=== PATIENT | female | born 1960 | race Hispanic/Latino ===

== ENCOUNTER 2022-10-12 16:08 | Emergency (ER) | payer SELFPAY ==
[2022-10-12 16:10] VITALS: BP 123/79; PULSE 72; RESP 16; TEMP 35.8; O2SAT 99; BMI 20.8
--- NOTE | 2022-10-12 17:57 | EX.ED.DYSGE1 ---
HPI History of Present Illness Chief Complaint: Edema Narrative Narrative: 62-year-old female presenting with intermittent lower extremity edema. She has her family here as she only speaks Ivorian and her son and her can interpret. She has had some edema in her lower legs for some time now. 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 When she sits down her legs improved. She denies any sort of chest pain or shortness of breath. No fevers or chills. She moved from [place] just over a year ago she reports. She was living in [place] and is now here. She has not had blood work since she was lived in [place]. She did not have a primary care doctor in [place]. She states she has no medical problems and takes no medications. She also complains of some lower back pain on the right which is new. She does remember injuring herself. No loss of bladder or bowel control. No saddle anesthesia or paresthesia. She does report of some pain rating down the left gluteal region. She is able to stand. Patient also reports that she is recently had some constipation but she is able to have a bowel movement every day. She does not have any abdominal pain. She has not taken anything [id number] for constipation. [facility] Medical History Herniated disc Home Medications lidocaine 5 % topical patch (Lidoderm) 1 patch topical DAILY PRN pain #15 ea 10/12/22 [Rx Last Taken Unknown] naproxen 500 mg tablet (Naprosyn) 500 mg PO BID PRN pain #30 tabs 10/12/22 [Rx Last Taken Unknown] Allergy/AdvReac Type Severity Reaction Status Date / Time No Known Allergies Allergy Verified 10/12/22 18:47 Social History Smoking Status: Never smoker ROS ROS ED Constitutional Constitutional ED: Denies chills or fever(s) Eyes Eyes: Denies change in vision or diplopia ENT ENT ED: Denies rhinorrhea or sore throat Cardiovascular Cardiovascular: Denies chest pain or palpitations Respiratory/Chest Respiratory/Chest: Denies cough, dyspnea or dyspnea on exertion Gastrointestinal Gastrointestinal: Reports constipation; Denies abdominal pain, nausea or vomiting Genitourinary Genitourinary ED: Denies dysuria or hematuria Musculoskeletal Musculoskeletal: Reports back pain; Denies arthralgias Integumentary Denies abscess or Abrasions Neurologic Neurologic: Denies headache(s) or paresthesias Psychiatric Psychiatric: Denies anxiety or depression EXAM Physical Exam Const Vital Signs: 10/12/22 16:10 10/12/22 16:57 Temperature 96.5 F L Temperature Source Temporal Pulse Rate 72 Respiratory Rate 16 Respiratory Effort Normal Non-Labored Respiratory Pattern Normal Blood Pressure 123/79 H Blood Pressure Mean 93 Pulse Ox 99 Oxygen Delivery Method Room Air Positive well nourished General Appearance ED: NAD; Negative for pallor HEENT Reports moist mucous membranes Eyes PERRL and EOMs intact bilaterally Resp normal respiratory effort and clear to auscultation bilaterally Auscultation: Negative for rales, rhonchi or wheezes Cardio regular rate and regular rhythm GI normal to inspection, nondistended, normoactive bowel sounds Back/Spine no CVA tenderness Back/Spine Narrative: Lumbar paraspinal tenderness and around L4-L5 on the right. No midline deformity or step-off. No bruising. Neuro oriented x3 and CN's II-XII intact bilaterally Sensorium / Orientation: alert Motor Exam: strength 5/5 throughout Psych mental status grossly normal Skin no rashes or lesions noted General Skin Exam: Negative for jaundice or pallor MDM MDM MDM Narrative Medical decision making narrative: Patient presented with back pain which appears to be musculoskeletal in nature. I will obtain an x-ray of the lumbar spine to rule out compression fracture. She is treated with lidocaine patch and Toradol. Patient does not have any flank pain or CVA tenderness however we will order urinalysis to rule out occult blood or UTI/pyelonephritis. I will obtain a CBC and a BMP to assess white blood cell count, hemoglobin, platelets, renal function, electrolytes. The patient has not had blood work drawn in some time. On exam I do not see any edema of the feet or the lower legs.I discussed this with the family and they state when she sits down and rest that the swelling goes away. I do not believe this is due to CHF that is likely due to standing all day. She has no evidence of DVT. Since he is not complaining of any chest pain or shortness of breath I do not think she needs a cardiac work-up. CBC and BMP unremarkable with exception of a glucose of 442. No anion gap. Urinalysis positive for nitrites otherwise there is no infectious findings. There is no occult blood. I did obtain a x-ray of the lumbar spine which shows an age-indeterminate L3 compression fracture. Patient feeling better after giving Toradol. She is ambulatory and was able to walk to the bathroom. She does not have health insurance nor does she have follow-up so I gave her follow-up with Karly Ochoa. All questions were answered via the family interpreting at the bedside. All questions were answered. Return precautions discussed. Patient given scription for Naprosyn and Lidoderm patches. Impression: 1. L3 compression fracture 2. Lower extremity Lab Data Attestation: I reviewed the patient's lab results. Labs: Laboratory Results - last 24 hr 10/12/22 10/12/22 15:05 18:40 WBC 7.2 RBC 4.28 Hgb 12.7 Hct 37.1 MCV 86.7 MCH 29.7 MCHC 34.2 RDW Std Deviation 40.3 RDW Coeff of Adina 12.8 Plt Count 464 H MPV 8.8 Immature Gran % (Auto) 0.600 Neut % (Auto) 53.6 Lymph % (Auto) 36.0 [place] % (Auto) 9.0 Eos % (Auto) 0.4 Baso % (Auto) 0.4 Absolute Neuts (auto) 3.9 Absolute Lymphs (auto) 2.60 Nucleated RBC % 0 Sodium 133 L Potassium 3.8 Chloride 101 Carbon Dioxide 26.0 Anion Gap 6 BUN 12 Creatinine 0.48 L Estim Creat Clear Calc 91.16 Est GFR (MDRD) Af Amer 169 Est GFR (MDRD) Non-Af 140 BUN/Creatinine Ratio 25.0 H Glucose 442 H Calcium 8.6 Urine Color Yellow Urine Clarity Clear Urine pH 6.5 Ur Specific [place] 1.010 Urine Protein 15 H Urine Glucose (UA) 250 H Urine Ketones Negative Urine Occult Blood Negative Urine Nitrite Positive H Urine Bilirubin Negative Urine Urobilinogen Normal Ur Leukocyte Esterase Negative Urine RBC 0 SEEN Urine WBC 0 SEEN Ur Squamous Epith Cells 0-5 SEEN Urine Bacteria 0 SEEN Urine Mucus 0 SEEN Radiography Diagnostic Testing: Clinical Impression(s) from Imaging Studies Lumbar Spine X-Ray 10/12/22 19:30 IMPRESSION: 1. Moderate wedge compression fracture of L3 which may be acute, subacute, or chronic and clinical correlation MRI would be useful. 2. Diffuse degenerative disc disease. Electronically Signed: Grzegorz Porter MD at 20:10 EDT , Discharge Plan Triage Chief Complaint: Edema ED Provider: Roberto Baires Dx/Rx/DC Orders Instructions: ED Fracture, Vertebral Compression, ED Peripheral Edema, Bilateral Prescriptions: New naproxen [Naprosyn] 500 mg tablet 500 mg PO BID PRN (Reason: pain) Qty: 30 0RF lidocaine [Lidoderm] 5 % adhesive patch,medicated 1 patch topical DAILY PRN (Reason: pain) Qty: 15 0RF Rx Instructions: leave on most painful area for up to 12 hrs Primary Care Provider: Care Physician,No Primary Referrals: Karly Ochoa [facility] [Provider Group] Care Physician,No Primary [Primary Care Provider] - Disposition Disposition: Home, Self Care Discharge Date/Time: 10/12/22 20:59
[2022-10-12] MEDS: Ketorolac 15 MG/ML Vial IV (18:03)
[2022-10-12] MEDS: Lidocaine 5% Patch 1 PATCH TOPICAL (18:05)
[2022-10-12 18:14] LABS: Absolute Neutrophil Count 3.9 X10^3/uL (2.0-7.7); Basophil# 0.03 X10^3/uL; Basophil% 0.4 % (0-1); Eosinophil# 0.03 X10^3/uL; Eosinophils% 0.4 % (0-5); Hematocrit 37.1 % (37-47); Hemoglobin 12.7 g/dL (12.0-15.0); Mean Corp Hgb Conc 34.2 g/dL (32-36); Mean Corpuscular Hgb 29.7 pg (27.0-32.0); Mean Corpuscular Volume 86.7 fL (81-99); Mean Platelet Vol. 8.8 fl (6.2-12.0); Monocyte# 0.65 X10^3/uL; NRBC Flagged by Analyzer 0 % (0-5); Neutrophil # 3.87 X10^3/uL (2.7-7.7); Neutrophil % 53.6 % (47-70); Platelet Count 464 K/mm3 (150-450); RBC Distribution Width CV 12.8 % (11.6-14.6); RBC Distribution Width SD 40.3 fl (35.1-43.9); Red Blood Count 4.28 M/mm3 (4.2-5.4); White Blood Count 7.2 K/mm3 (4.4-11.0)
[2022-10-12 18:31] LABS: Anion Gap 6 (5-15); BUN 12 mg/dL (7-18); Calcium,Total 8.6 mg/dL (8.5-10.1); Chloride 101 mmol/L (98-107); Creatinine, Serum 0.48 mg/dL (0.55-1.02); EST Glomerular Filtration Rate 140 mL/min (>60); Est Glom Filt Rate - Afr Amer 169 mL/min (>60); Estimated Creatinine Clearance 91.16 ml/min; Glucose 442 mg/dL (74-106); Potassium 3.8 mmol/L (3.5-5.1); Sodium Level 133 mmol/L (136-145)
[2022-10-12 18:48] LABS: Bacteria 0 SEEN /hpf (None Seen); Mucous, Urine 0 SEEN /hpf (<or=2+); Red Blood Cells-Urine 0 SEEN /hpf (0-5); White Blood Cells 0 SEEN /hpf (0-5)
[2022-10-12 18:51] LABS: Color, Urine Yellow (Yellow); Glucose, Dipstick 250 mg/dl (Normal); Ketone-Dipstick Negative (Negative); Leukocyte Esterase-Dipstick Negative /ul (Negative); Nitrite-Dipstick Positive (Negative); Occult Blood-Urine Negative /ul (Negative); Protein-Dipstick 15 mg/dl (Negative); Urine Bilirubin Dipstick Negative (Negative); Urine Clarity Clear (Clear); Urine Urobilinogen Normal (Normal); Urine pH 6.5 (5.0 - 8.0)
[2022-10-12 18:58] LABS: Squamous Epithelial Cells - UA 0-5 SEEN /hpf (5-10)
--- NOTE | 2022-10-12 19:30 | RAD_ITS ---
STUDY: X-RAY - LUMBAR SPINE REASON FOR EXAM: Female, 62 years old. back pain TECHNIQUE: 3 view(s) of the lumbar spine were obtained. COMPARISON: None FINDINGS: Normal lumbar lordosis. There is no substantial scoliosis. There is a normal alignment of the vertebrae. Moderate wedge compression fracture of L3 which may be acute, subacute, or chronic. Clinical correlation MRI may be useful. Normal disc space heights. Facet hypertrophy in the lumbar spine. The soft tissue structures are unremarkable. RAD/Lumbar Spine 2 or 3 Views IMPRESSION: 1. Moderate wedge compression fracture of L3 which may be acute, subacute, or chronic and clinical correlation MRI would be useful. 2. Diffuse degenerative disc disease. Electronically Signed: Grzegorz Porter MD at 20:10 EDT ,
== END 2022-10-12 20:59 | disposition home or self-care (01) ==
PROVIDERS: Emergency Provider Student in an Organized Health Care Education/Training Program; Visit Provider Student in an Organized Health Care Education/Training Program
DX: S32.030A Wedge compression fracture of third lumbar vertebra, initial encounter for closed fracture (principal); X58.XXXA Exposure to other specified factors, initial encounter
CPT/HCPCS: 72100; 80048; 81001; 85025; 96374; 99284; A4216

== ENCOUNTER 2023-07-05 06:16 | Emergency (ER) | payer OTHER, SELFPAY ==
[2023-07-05 06:18] VITALS: BP 160/88; PULSE 118; RESP 25; TEMP 36.1; O2SAT 93; BMI 21.9
--- NOTE | 2023-07-05 06:21 | EKG12_ITS ---
Test Reason : CP Blood Pressure : / mmHG Vent. Rate : 120 BPM Atrial Rate : 120 BPM P-R Int : 152 ms QRS Dur : 082 ms QT Int : 324 ms P-R-T Axes : 038 063 031 degrees QTc Int : 457 ms Sinus tachycardia Cannot rule out Inferior infarct , age undetermined Cannot rule out Anterior infarct , age undetermined Abnormal ECG Confirmed by HOUSTON MYERS, FOUZIA ([id number]), art editor JOVITA GROVE ([id number]) on 07/06/2023 9:30:48 AM Referred By: HANNAH Confirmed By:FOUZIA CONRAD MD
--- NOTE | 2023-07-05 06:21 | RAD_ITS ---
INDICATION: chest pain EXAMINATION/TECHNIQUE: X-RAY - XR Chest 1 View AP portable. 6:30 AM COMPARISON: None. FINDINGS: LINES/DEVICES: None. LUNGS: No consolidation. No pneumothorax. MEDIASTINUM: Unremarkable. CARDIAC SILHOUETTE: Not enlarged. BONES AND SOFT TISSUES: No acute abnormalities. Surgical clips right upper abdomen cholecystectomy. RAD/Chest 1 View (Portable) IMPRESSION: No evidence of active intrathoracic disease. Electronically Signed: Kristi Flores MD at 6:52 EDT ,
[2023-07-05 06:26] VITALS: O2SAT 94
[2023-07-05 06:30] LABS: Absolute Lymphocyte Count 2.33 X10^3/uL (0.83-4.51); Basophil# 0.06 X10^3/uL; Basophil% 0.5 % (0-1); Eosinophil# 0.09 X10^3/uL; Eosinophils% 0.8 % (0-5); Hematocrit 44.1 % (37-47); Hemoglobin 14.4 g/dL (12.0-15.0); Lymphocyte # 2.33 X10^3/ul (0.83-4.51); Lymphocyte % 20.5 % (19-41); Mean Corp Hgb Conc 32.7 g/dL (32-36); Mean Corpuscular Hgb 28.6 pg (27.0-32.0); Mean Corpuscular Volume 87.7 fL (81-99); Mean Platelet Vol. 9.1 fl (6.2-12.0); Monocyte# 0.87 X10^3/uL; Monocyte% 7.6 % (0-10); NRBC Flagged by Analyzer 0 % (0-5); Neutrophil # 7.98 X10^3/uL (2.7-7.7); Neutrophil % 70.2 % (47-70); Platelet Count 473 K/mm3 (150-450); RBC Distribution Width CV 11.9 % (11.6-14.6); RBC Distribution Width SD 38.7 fl (35.1-43.9); Red Blood Count 5.03 M/mm3 (4.2-5.4); White Blood Count 11.4 K/mm3 (4.4-11.0)
--- NOTE | 2023-07-05 06:32 | ED.VIS.CHEST ---
HPI History of Present Illness Chief Complaint: Chest Pain Informant: patient and spouse/S.O. Onset/Context/Timing Onset: Days Activity at onset: gradual Timing: Continuous Quality: Positive for Stabbing Location: Left Chest Current Severity: Moderate Maximum Severity: Moderate Worsened By: Movement of Torso Relieved By: Remaining Still Associated Symptoms: Negative for Vomiting, Diaphoresis, Dyspnea, Cough, Fever, Lightheadedness, Acid Reflux or Palpitations Narrative Narrative: 63-year-old female only past medical history is for prior kidney stone. 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 She states that she has had left-sided chest pain for 2 to 3 days. Came on while she was doing work and was lifting things. Denies any fall or trauma. No fever or cough. No shortness of breath. The pain in her left chest is worse with movement of her torso. No prior history. No cardiac history no history of DVT or PE. No hemoptysis. No leg pain or swelling. No recent travel, surgery or immobilization. Pains been constant for 2 to 3 days. It is made worse with movement. She denies any prior history of similar pain. Prior Similar Symptoms: No Recent Illness/Hospitalization: No CVD Risk Factors: Negative for Hypertension, Diabetes, Hypercholesterolemia or Smoking PE Risk Factors: Negative for Recent Travel/Surgery, Recent Immobilization, Prior DVT or PE, Cancer or OCP + Smoking + >/=35 TAD Risk Factors: Negative for Marfan's Syndrome [facility] Medical History Herniated disc Home Medications oxycodone-acetaminophen 5 mg-325 mg tablet (Percocet) 1 tab PO Q4H PRN pain 3 days #14 tabs 07/05/23 [Rx Last Taken Unknown] Allergy/AdvReac Type Severity Reaction Status Date / Time No Known Allergies Allergy Verified 07/05/23 06:17 Social History Smoking Status: Never smoker ROS ROS ED ROS Narrative Left chest pain appears to be chest wall pain. No other recent illness. Review of Systems ROS Unobtainable: Denies due to encephalopathy Constitutional Constitutional ED: Denies chills or fever(s) Eyes Eyes: Reports none ENT ENT ED: Denies ear pain Cardiovascular Cardiovascular: Reports as per HPI and chest pain; Denies palpitations or racing heartbeat Respiratory/Chest Respiratory/Chest: Denies cough, dyspnea or dyspnea on exertion Gastrointestinal Gastrointestinal: Denies abdominal pain, constipation, diarrhea, melena, nausea or vomiting Genitourinary Genitourinary ED: Denies dysuria or hematuria Musculoskeletal Musculoskeletal: Denies arthralgias Integumentary Denies abscess or Abrasions Neurologic Neurologic: Denies headache(s) Psychiatric Psychiatric: Denies anxiety or depression Endocrine Endocrinology: Denies cold intolerance Hematologic/Lymphatic Hematologic/Lymphatic: Denies easy bleeding, easy bruising or lymphadenopathy Allergic/Immunologic Allergic/Immunologic ED: Denies mouth swelling, tongue swelling or urticaria EXAM Physical Exam Narrative Exam Narrative: 61-year-old female vital signs are stable. Pulse ox 93% on room air no hypoxia. She does not look septic or toxic. H EENT exam unremarkable atraumatic. Pupils round reactive light. Neck nontender. Lungs clear to auscultation bilaterally. Heart tachycardic rate about 118 no murmur. Chest wall she has reproducible left anterior and lateral chest wall pain is totally reproducible. There are no signs of trauma. No ecchymosis or bruising. No subcu air or crepitance. No gross bony deformities. There is no rash. There is no redness or warmth. The right chest wall and right posterior ribs are unremarkable. Left lateral chest wall is mild tenderness also. The pain is worsened when she rotates around her torso. Otherwise back is nontender. Spine is nontender. Abdomen is soft and nontender. Normal bowel sounds no peritoneal signs. Pelvic girdle intact. Patient is moving all 4 extremities. She has normal pension agent strength. Normal dorsi plantarflexion. Calves are nontender without edema or cords. Equal and symmetrical radial pulses. Neurologically she is awake and alert. Answering questions and following commands. Const Vital Signs: 07/05/23 06:18 07/05/23 06:20 07/05/23 06:26 Temperature 97 F L Temperature Source Temporal Pulse Rate 118 H Respiratory Rate 25 H Respiratory Pattern Normal Blood Pressure 160/88 H Blood Pressure Mean 112 Pulse Ox 93 94 Oxygen Delivery Method Room Air Room Air Positive well nourished and well developed; Negative for obese, cachectic, contractures or unkempt General Appearance ED: well developed and NAD; Negative for unkempt, cachectic, contractures or pallor Nutritional Appearance: Negative for cachectic or obese HEENT Reports moist mucous membranes; Denies dry mucous membranes normocephalic and atraumatic; Negative for trauma or tenderness Mouth ED: No dry mucous membranes Mouth: No dry mucous membranes Eyes PERRL and EOMs intact bilaterally General Eye ED: Negative for pale conjunctiva or scleral icterus Neck no lymphadenopathy, supple and no JVD General: Negative for tenderness Chest Wall inspection of chest normal; Negative for palpation of chest normal Chest Narrative: Reproducible left anterior and lateral chest wall tenderness. But no signs of trauma. No rash. No redness or warmth. No bruising. No crepitance. Chest: tenderness Resp normal respiratory effort and clear to auscultation bilaterally Effort and Inspection: Negative for respiratory distress Auscultation: Negative for rales, rhonchi, wheezes or diminished lung sounds Cardio regular rhythm, S1 normal heart sound, S2 normal heart sound and no murmurs; Negative for regular rate Rate: tachycardic Peripheral Pulses: pulses 2+ throughout GI normal to inspection, nondistended, normoactive bowel sounds, soft to palpation, non-tender, non-distended and no masses Back/Spine no CVA tenderness and no thoracic nor lumbar tenderness General Back: Negative for CVA tenderness Cervical Spine: Negative for cervical spine tenderness Extremity normal to inspection General Extremety ED: Negative for edema, pulses abnormal or tenderness General Extremity: Negative for edema or pulses abnormal Neuro oriented x3 and CN's II-XII intact bilaterally Sensorium / Orientation: awake, alert, oriented to person, oriented to place and oriented to time; Negative for confused, lethargic or stuporous Motor Exam: strength 5/5 throughout Psych mental status grossly normal Appearance: Negative for unkempt Attitude: No agitated Mood & Affect: Negative for depressed, anxious or tearful Skin no rashes or lesions noted and no wounds General Skin Exam: Negative for jaundice or pallor Rashes: No rashes noted Trauma: Negative for abrasion or laceration Image ED - Body Diagram Man: 1. Reproducible left anterior and lateral chest wall pain on palpation. No signs of trauma. No crepitance or subcu air. No bruising. No bony deformity. Heart Score History: Slightly/Non-Suspicious ECG: Normal Age: >45 - <65 years Risk Factors: No Risk Factors Troponin: </= Normal Limit Score: 1 MDM MDM MDM Narrative Medical decision making narrative: 63-year-old female with reproducible left anterior lateral chest wall pain. History is that she developed chest wall pain after lifting things. Clinically this appears to be a chest wall strain. I will do a cardiac workup. She has no history of DVT or PE. And no risk factors. I do not think she needs a D-dimer. Patient will be treated with morphine for pain and Zofran. Repeat exam at 7 AM patient is feeling much better to the pain medication. Her cardiac labs returned were unremarkable. However she did have an elevated blood sugar of 400 and I believe she may be a new onset diabetic. I discussed and explained that to both her and her . I explained the importance of her following up with the [facility] to begin treatment. She will be written for limited Percocet for her chest wall pain. I reexamined her chest wall there is no change. She can also use Motrin. And she will be given a work excuse. History & Record Review Discussion w/independent historian: Patient Additional record(s) reviewed:: Prior inpatient record, Prior outpatient record, Prior ED visit and Prior labs Lab Data Attestation: I reviewed the patient's lab results. Lab results narrative: CBC shows a white count 11.4. H&H 14 and 44. Platelets 473. Chemistry shows sodium 135. Gap 8. Normal BUN 12 creatinine 0.5. Glucose is elevated at 407. Prior labs show an elevated glucose. Patient most likely is diabetic and unaware that. I will discuss that with her and her . Troponin was less than 3. Labs: Laboratory Results - last 24 hr 07/05/23 06:25 WBC 11.4 H RBC 5.03 Hgb 14.4 Hct 44.1 MCV 87.7 MCH 28.6 MCHC 32.7 RDW Std Deviation 38.7 RDW Coeff of Adina 11.9 Plt Count 473 H MPV 9.1 Immature Gran % (Auto) 0.400 Neut % (Auto) 70.2 H Lymph % (Auto) 20.5 [place] % (Auto) 7.6 Eos % (Auto) 0.8 Baso % (Auto) 0.5 Absolute Neuts (auto) 8.0 H Absolute Lymphs (auto) 2.33 Nucleated RBC % 0 Sodium 135 L Potassium 4.3 Chloride 98 Carbon Dioxide 29.0 Anion Gap 8 BUN 12 Creatinine 0.51 L Estim Creat Clear Calc 82.15 Est GFR (MDRD) Af Amer 157 Est GFR (MDRD) Non-Af 130 BUN/Creatinine Ratio 23.6 H Glucose 407 H Calcium 9.3 Troponin I High Sens < 3 L Radiography Chest X-Ray - ED: 1 View, Read by ED Physician, Heart, Lungs, Mediastinum, Bony Structures, No Acute Disease and Chronic Changes Diagnostic Testing: Clinical Impression(s) from Imaging Studies Chest X-Ray 07/05/23 06:21 IMPRESSION: No evidence of active intrathoracic disease. Electronically Signed: Kristi Flores MD at 6:52 EDT , Chest x-ray, portable, single view interpreted by myself shows no acute abnormality. Normal cardiac silhouette. Normal lung esposito. No obvious rib fracture. No pneumothorax. No effusions or infiltrates. Rhythm Strip Rhythm Strip: Sinus Tach Rate: 120 Ectopy: None EKG Initial EKG: Attestation: I personally reviewed and interpreted this EKG as follows: Interpretation: No Acute Injury Pattern and Sinus Tachycardia Comments: Sinus tachycardia rate of 120. No acute signs of IA or ischemia. Discharge Plan Triage Chief Complaint: Chest Pain ED Provider: Elder Seaman Dx/Rx/DC Orders Clinical Impression: Chest wall muscle strain, Chest pain, Acute hyperglycemia, New onset type 2 diabetes mellitus Instructions: ED Hyperglycemia New Poss Diabetes, ED Chest Wall Strain Prescriptions: New oxycodone-acetaminophen [Percocet] 5-325 mg tablet 1 tab PO Q4H PRN (Reason: pain) 3 Days Qty: 14 0RF Primary Care Provider: Care Physician,No Primary Referrals: Freddy Katz MD [Med Staff - [employer]] - 3-5 Days if not improving Karly Ochoa [Non-Staff] - As soon as possible Care Physician,No Primary [Primary Care Provider] - Activity Restrictions/Additional Instructions: Percocet for pain. Also Motrin 400 mg twice a day to decrease pain and inflammation for the next 5 days. Follow-up with a local primary care physician to ensure you are improving. This appears to be strain of your chest wall. Hot shower and warm bath. This should progressively improve. Return if you are feeling worse. Your white blood sugar was elevated today at 400. I believe she has new onset diabetes. It is very important that she follows up to begin treatment for that. Off work the next 3 days. Print Language: Somali Disposition Disposition: Home, Self Care
[2023-07-05] MEDS: Ondansetron 4 MG/2 ML Vial IV (06:37)
[2023-07-05] MEDS: Ibuprofen 200 MG Tablet 400 MG PO (06:38)
[2023-07-05] MEDS: morphine 8 MG/ML Syringe 6 MG IV (06:40)
[2023-07-05 06:48] LABS: Anion Gap 8 (5-15); BUN 12 mg/dL (7-18); BUN/Creat Ratio 23.6 RATIO (10-20); Calcium,Total 9.3 mg/dL (8.5-10.1); Chloride 98 mmol/L (98-107); Creatinine, Serum 0.51 mg/dL (0.55-1.02); EST Glomerular Filtration Rate 130 mL/min (>60); Est Glom Filt Rate - Afr Amer 157 mL/min (>60); Estimated Creatinine Clearance 82.15 ml/min; Glucose 407 mg/dL (74-106); Potassium 4.3 mmol/L (3.5-5.1); Sodium Level 135 mmol/L (136-145); Troponin-I HS (w/2H Reflex) < 3 pg/mL (3.0-54.0)
[2023-07-05 07:14] VITALS: BP 146/94; PULSE 109; RESP 16; TEMP 36.4; O2SAT 93
[2023-07-05] MEDS: Ondansetron ODT 4 MG Tablet PO (07:45)
[2023-07-05 08:28] LABS: Reflex Troponin-HS? (from REC) Y
== END 2023-07-05 07:51 | disposition home or self-care (01) ==
LOC: ED 07:13
PROVIDERS: Emergency Provider Emergency Medicine; Visit Provider Emergency Medicine
DX: S29.011A Strain of muscle and tendon of front wall of thorax, initial encounter (principal); E11.65 Type 2 diabetes mellitus with hyperglycemia; X58.XXXA Exposure to other specified factors, initial encounter
CPT/HCPCS: 71045; 80048; 84484; 85025; 93005; 96374; 96375; 99285; A4216; J2405

== ENCOUNTER 2025-01-18 09:54 | Emergency (ER) | payer OTHER, SELFPAY ==
[2025-01-18 09:55] VITALS: BP 104/93; PULSE 101; RESP 18; TEMP 36.7; O2SAT 99
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
--- NOTE | 2025-01-18 10:19 | CT_ITS ---
PROCEDURE: SPINE CERVICAL WITHOUT CONTRAS 01/18/2025 REASON FOR EXAM: FALL, NECK PAIN TECHNIQUE: Procedure Code: CTS Modality: CT Procedure: SPINE CERVICAL WITHOUT CONTRAS Coronal and Sagittal reconstruction series were provided. One or more dose reduction techniques were used (e.g., Automated exposure control, adjustment of the mA and/or kV according to patient size, use of iterative reconstruction technique. RADIATION DOSE SUMMARY: CTDlvol: 59 mGy DLP: 1022 mGycm FINDINGS: Visualized portions of the mastoid air cells appear clear. No definite skull base fracture. Calcific aortic and great vessel atherosclerosis. No soft tissue neck mass. Calcific carotid artery atherosclerosis. Visualized lung apices appear clear. No prevertebral soft tissue swelling of significance. Midcervical kyphosis and spondylosis. Slight height loss of the C5 and C6 vertebrae. Well aligned enlocated facet joints. 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 C3-4: Small disc bulge. C4-5: Disc bulge. Mild spinal stenosis. C5-6: Grade 1 retrolisthesis. Right paracentral disc/osseous protrusion. Mild to moderate spinal stenosis. Moderate right foraminal stenosis. C6-7: Small disc bulge. Grade 1 retrolisthesis. Disc bulge. No evidence of fracture. CT/Spine Cervical without Contras IMPRESSION: C5-6: Retrolisthesis and disc/osseous protrusion causing [id number] spina l stenosis. Moderate right foraminal stenosis. C4-5: Disc bulge. Mild spinal stenosis. Midcervical kyphosis and spondylosis. Slight height loss of the C5 and C6 vertebrae. No evidence of fracture. Calcific atherosclerosis. Reading Location: [facility]
--- NOTE | 2025-01-18 10:19 | RAD_ITS ---
PROCEDURE: PELVIS 1 OR 2 VIEWS 01/18/2025 REASON FOR EXAM: FALL, BILATERAL HIP PAIN TECHNIQUE: Procedure Code: RADPEL Modality: DX Procedure: PELVIS 1 OR 2 VIEWS COMPARISON: None. RAD/Pelvis 1 or 2 Views IMPRESSION: AP pelvis and four view left femur: Degenerative changes are seen of the visualized lower lumbar spine. Minimal sacroiliac joint degenerative changes are noted. Minimal degenerative changes are seen of the hip joints, without evidence of jeromy int space narrowing. No evidence of femoral head osteonecrosis. No fracture or dislocation is seen. If clinical concern persists, short-term follow-up imaging may be obtained to r ule out a currently occult fracture. Reading Location: [id number]
--- NOTE | 2025-01-18 10:19 | CT_ITS ---
PROCEDURE: BRAIN/HEAD WITHOUT CONTRAST 01/18/2025 REASON FOR EXAM: FALL, HIT HEAD TECHNIQUE: Procedure Code: CTBR Modality: CT Procedure: BRAIN/HEAD WITHOUT CONTRAST Coronal and Sagittal reconstruction series were provided. One or more dose reduction techniques were used (e.g., Automated exposure control, adjustment of the mA and/or kV according to patient size, use of iterative reconstruction technique. RADIATION DOSE SUMMARY: CTDlvol: 45 mGy DLP: 728 mGycm COMPARISON: None FINDINGS: Brain: There is no evidence of hemorrhage, acute ischemia or mass. No extra- axial fluid collection, midline shift or mass effect. CSF Spaces: Normal Sinuses/Mastoids: Clear Bones: Clear CT/Brain/Head without Contrast IMPRESSION: No acute intracranial abnormality. Reading Location: [id number]
--- NOTE | 2025-01-18 10:22 | ED.VIS.FALL ---
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 physician or if necessary back here in the Emergency Department. You should return to the Emergency Department immediately if your symptoms worsen or new symptoms develop. Print Language: Kyr[place]z Disposition Disposition: Home, Self Care
[2025-01-18] MEDS: fentaNYL 100 MCG/2 ML Ampul 25 MCG IM (11:30)
[2025-01-18 11:50] VITALS: BP 130/67; PULSE 97; RESP 20; TEMP 36.7; O2SAT 99
[2025-01-18 11:51] VITALS: BP 130/67; PULSE 97
== END 2025-01-18 12:03 | disposition home or self-care (01) ==
PROVIDERS: Emergency Provider Student in an Organized Health Care Education/Training Program; Visit Provider Student in an Organized Health Care Education/Training Program
DX: S09.90XA Unspecified injury of head, initial encounter (principal); M25.511 Pain in right shoulder; M25.512 Pain in left shoulder; M54.2 Cervicalgia; M25.562 Pain in left knee; M25.561 Pain in right knee; M25.551 Pain in right hip; M25.552 Pain in left hip; W01.0XXA Fall on same level from slipping, tripping and stumbling without subsequent striking against object, initial encounter; Y99.0 Civilian activity done for income or pay
CPT/HCPCS: 70450; 72125; 72170; 73030; 73552; 73564; 73610; 96372; 99282

== ENCOUNTER → 2025-02-04 | Outpatient (CLI) | payer OTHER, SELFPAY ==
--- NOTE | 2025-02-04 10:39 | RAD_ITS ---
PROCEDURE: LUMBAR SPINE 2 OR 3 VIEWS 02/04/2025 REASON FOR EXAM: FALL TECHNIQUE: Procedure Code: RADSPLL Modality: DX Procedure: LUMBAR SPINE 2 OR 3 VIEWS COMPARISON: None FINDINGS: Vertebrae: Almost complete collapse of the L3 vertebrae. Age of which can not be determined since no prior studies available for comparison. Discs: Moderate degree of disc space narrowing at the L5-S1 level. Alignment: Mild degree of retrolisthesis of L3 on L4. Other: Large amount of fecal material is seen in the colon. Status post cholecystectomy. RAD/Lumbar Spine 2 or 3 Views IMPRESSION: Almost complete collapse of the L3 vertebrae. The age of the fracture can not be determined due to no prior study available for comparison. Disc space narrowing at the L5-S1 level. Retrolisthesis of L3 on L4. Reading Location: [id number]
== END | disposition home or self-care (01) ==
LOC: MTRAD 10:39
PROVIDERS: Referring Provider Physician Assistant; Visit Provider Physician Assistant
DX: M48.56XA Collapsed vertebra, not elsewhere classified, lumbar region, initial encounter for fracture (principal); W19.XXXA Unspecified fall, initial encounter
CPT/HCPCS: 72100